=== PATIENT | female | born 1955 | race Two or more races ===

== ENCOUNTER → 2018-01-09 | Outpatient (CLI) | payer MEDICARE ==
[~2018-01-09] MED LIST: AMIT25TA PO; AMLO5TAB7 PO; ASPI-621 PO; ATOR40TA78 PO; CYMBALTA PO; DILT180C72 PO; DULO30CA2 PO; GABA300C10 PO; HYDR-3237 PO; HYDR12.58 PO; IRON PO; LEVO150T61 PO; MELO15TA24 PO; OMEP40CA6 PO; OXYC-302 PO; PRAV40TA2 PO; PREDNISONE PO; PREG300C PO; TRAM50TA2 PO
[2018-01-09 12:11] LABS: ALANINE AMINOTRANSFERASE 54 U/L (12-78); ALBUMIN 3.6 g/dL (3.4-5.0); ANION GAP 6 mmol/L (5-15); CHLORIDE 102 mmol/L (98-107); CREATININE 0.92 mg/dL (0.55-1.02)
[2018-01-09 12:14] LABS: ALKALINE PHOSPHATASE 249 U/L (45-117); BILIRUBIN,TOTAL 0.5 mg/dL (0.2-1.0); TOTAL PROTEIN 8.6 g/dL (6.4-8.2)
[2018-01-09 12:21] LABS: BASOPHILS # (AUTO) 0.02 x10^3/uL (0-0.1); BASOPHILS % (AUTO) 0 % (0-1); EOSINOPHILS # (AUTO) 0.19 x10^3/uL (0-0.4); EOSINOPHILS % (AUTO) 4 % (1-7); LYMPHOCYTES # (AUTO) 1.69 x10^3/uL (1-3.4); LYMPHOCYTES % (AUTO) 30 % (22-44); MD NO; MEAN CORPUSCULAR HEMOGLOBIN 29.8 pg (27.0-34.8); MEAN CORPUSCULAR HGB CONC 33.4 g/dL (32.4-35.8); MEAN CORPUSCULAR VOLUME 89.1 fL (80-100); MEAN PLATELET VOLUME 8.9 fL (7.4-10.4); MONOCYTES # (AUTO) 0.25 x10^3/uL (0.2-0.8); MONOCYTES % (AUTO) 5 % (2-9); NEUTROPHILS # (AUTO) 3.42 x10^3/uL (1.8-6.8); NEUTROPHILS % (AUTO) 61 % (42-75); PLATELET COUNT 240 x10^3/uL (130-400); RED BLOOD COUNT 3.71 x10^6/uL (3.82-5.3); RED CELL DISTRIBUTION WIDTH 16.6 % (9.6-15.2)
== END | disposition home or self-care (01) ==
LOC: STAR 10:52
PROVIDERS: ATTEND Thoracic Surgery (Cardiothoracic Vascular Surgery)
DX: Z01.818 Encounter for other preprocedural examination (principal); R00.1 Bradycardia, unspecified
CPT/HCPCS: 36415; 80053; 85025; 93005

== ENCOUNTER 2018-01-14 06:16 | Inpatient (IN) | payer BC, MEDICARE ==
[~2018-01-14] VITALS: Ht 162.6 cm; Wt 110.2 kg
[2018-01-14] MEDS ORDERED: FENTANYL PF 250 MCG/5ML ONE (06:24)
[2018-01-14] MEDS ORDERED: MIDAZOLAM 1 MG/ML, 2ML ONE (06:24)
[2018-01-14] MEDS ORDERED: MEPERIDINE/PF 25MG/0.5ML IVPush PRN (07:00)
[2018-01-14] MEDS ORDERED: PROMETHAZINE 12.5 MG SUPP PR PRN (07:00)
[2018-01-14] MEDS ORDERED: LABETALOL 5MG/ML, 20ML IV PRN (07:00)
[2018-01-14] MEDS ORDERED: OXYcodone 5 MG/5 ML ORAL.SOL UDC PO PRN (07:00)
[2018-01-14] MEDS ORDERED: HYDROmorphone 1 MG/ML, 1ML IV PRN (07:00)
[2018-01-14] MEDS ORDERED: EPHEDRINE 50 MG/ML, 1ML IM PRN (07:00)
[2018-01-14] MEDS ORDERED: KETOROLAC 30 MG/1 ML IV PRN (07:00)
[2018-01-14] MEDS ORDERED: PROCHLORPERAZINE 5 MG/ML, 2ML IV PRN (07:00)
[2018-01-14] MEDS ORDERED: LACTATED RINGERS 1,000 ML IV SCH ×2 (07:07→09:25)
[2018-01-14] MEDS ORDERED: BUPIVACAINE/PF-EPI 0.5% 1:200K ONE (07:07)
[2018-01-14] MEDS ORDERED: LIDOCAINE-MPF 1%, 2ML INFIL ONE (07:30)
[2018-01-14] MEDS ORDERED: ACETAMINOPHEN 500 MG TABLET PO ONE (07:30)
[2018-01-14] MEDS ORDERED: GABAPENTIN 300 MG CAPSULE PO ONE (07:30)
[2018-01-14] MEDS ORDERED: ONDANSETRON ODT 8 MG PO ONE (07:30)
[2018-01-14] MEDS ORDERED: DEXAMETHASONE 4 MG/ML, 1ML ONE ×2 (07:37)
[2018-01-14] MEDS ORDERED: PHENYLEPHRINE 10 MG/ML ONE (08:37)
[2018-01-14] MEDS ORDERED: PROPOFOL 10 MG/ML, 20ML ONE (08:37)
[2018-01-14] MEDS ORDERED: ROCURONIUM 10 MG/ML,10ML ONE (08:37)
[2018-01-14] MEDS ORDERED: CEFAZOLIN 1,000 MG ONE (08:37)
[2018-01-14] MEDS ORDERED: SUCCINYLCHOLINE 20 MG/ML, 10ML ONE (08:37)
[2018-01-14] MEDS ORDERED: SUGAMMADEX 200 MG/2 ML IVPush ONE (09:12)
[2018-01-14] MEDS ORDERED: LORazepam 2 MG/ML, 1ML IVPush PRN (09:30)
[2018-01-14] MEDS ORDERED: morphine SULFATE 10 MG/ML, 1ML IVPush PRN (09:30)
[2018-01-14] MEDS ORDERED: DIPHENHYDRAMINE 25 MG CAPSULE PO PRN (09:30)
[2018-01-14] MEDS ORDERED: DIPHENHYDRAMINE 50 MG/ML, 1ML IVPush PRN (09:30)
[2018-01-14] MEDS ORDERED: ONDANSETRON 2MG/ML, 2ML IVPush PRN (09:30)
[2018-01-14] MEDS ORDERED: ACETAMINOPHEN 650 MG SUPP PR PRN (09:30)
[2018-01-14] MEDS ORDERED: ENALAPRILAT 1.25 MG/ML, 2ML IVPush PRN (09:30)
[2018-01-14] MEDS ORDERED: ACETAMINOPHEN 325 MG TABLET PO PRN (09:30)
[2018-01-14] MEDS ORDERED: LORazepam 1MG TABLET PO PRN (09:30)
[2018-01-14] MEDS ORDERED: hydrALAzine 20 MG/ML, 1ML IVPush PRN (09:30)
[2018-01-14] MEDS: FAMOTIDINE 20 MG/2 ML IVPush SCH ×2 (09:30→20:25)
[2018-01-14] MEDS ORDERED: KETOROLAC 30 MG/1 ML ONE (09:34)
[2018-01-14] MEDS ORDERED: FENTANYL PF 100 MCG/2ML ONE ×2 (09:35→10:13)
[2018-01-14] MEDS: FENTANYL PF 100 MCG/2ML IV PRN ×4 (09:37→10:51)
[2018-01-14] MEDS ORDERED: OXYcodone 5 MG/5 ML ORAL.SOL UDC ONE (10:04)
[2018-01-14 12:53] VITALS: BP 124/78
[2018-01-14 12:54] VITALS: BP 110/72
[2018-01-14] MEDS: HYDROcodone/APAP 5/325 TABLET PO PRN (17:16)
[2018-01-14 19:00] VITALS: BP 115/79
[2018-01-14] MEDS ORDERED: ATORVASTATIN 40 MG TABLET PO SCH (21:00)
[2018-01-15 01:50] VITALS: BP 122/84
[2018-01-15] MEDS: HYDROcodone/APAP 5/325 TABLET PO PRN ×2 (02:15→08:37)
[2018-01-15 06:04] LABS: ANION GAP 6 mmol/L (5-15); CALCIUM 8.5 mg/dL (8.5-10.1); CHLORIDE 99 mmol/L (98-107)
[2018-01-15 06:06] LABS: BASOPHILS # (AUTO) 0.03 x10^3/uL (0-0.1); BASOPHILS % (AUTO) 0 % (0-1); CREATININE 0.99 mg/dL (0.55-1.02); EOSINOPHILS # (AUTO) 0.18 x10^3/uL (0-0.4); EOSINOPHILS % (AUTO) 3 % (1-7); LYMPHOCYTES # (AUTO) 1.49 x10^3/uL (1-3.4); LYMPHOCYTES % (AUTO) 20 % (22-44); MD NO; MEAN CORPUSCULAR HEMOGLOBIN 30.3 pg (27.0-34.8); MEAN CORPUSCULAR HGB CONC 33.7 g/dL (32.4-35.8); MEAN CORPUSCULAR VOLUME 89.8 fL (80-100); MEAN PLATELET VOLUME 9.1 fL (7.4-10.4); MONOCYTES # (AUTO) 0.33 x10^3/uL (0.2-0.8); MONOCYTES % (AUTO) 5 % (2-9); NEUTROPHILS % (AUTO) 72 % (42-75); PLATELET COUNT 216 x10^3/uL (130-400); RED BLOOD COUNT 3.64 x10^6/uL (3.82-5.3); RED CELL DISTRIBUTION WIDTH 17.2 % (9.6-15.2)
[2018-01-15 07:50] VITALS: BP 106/64
[2018-01-15 08:34] VITALS: BP 116/77
[2018-01-15] MEDS: FAMOTIDINE 20 MG/2 ML IVPush SCH (08:38)
[2018-01-15] MEDS ORDERED: TEMPLATE NON-FORMULARY MED. (Diltiazem Hcl** (Diltiazem Er**) 180 MG) PO SCH (09:00)
[2018-01-15] MEDS ORDERED: DILTIAZEM 60 MG TABLET PO SCH (09:00)
[2018-01-15] MEDS ORDERED: DILTIAZEM CD 180 MG CAP.ER.24H PO SCH (09:00)
[2018-01-15] MEDS ORDERED: ENOXAPARIN 40 MG/0.4 ML SQ SCH (09:00)
[2018-01-15] MEDS ORDERED: HYDR-3240 PO (10:20)
== END 2018-01-15 11:30 | disposition home or self-care (01) | DRG 315 ==
LOC: ORIP 06:16 → 5SO 11:18 → DCLOUNGE 01-15 11:06
PROVIDERS: ADMIT Thoracic Surgery (Cardiothoracic Vascular Surgery); ATTEND Thoracic Surgery (Cardiothoracic Vascular Surgery)
PROC: 0W9D4ZZ Drainage of Pericardial Cavity, Percutaneous Endoscopic Approach (ICD-10-PCS; principal; 2018-01-14 08:30)
DX: I31.3 Pericardial effusion (noninflammatory) (principal); Z68.41 Body mass index [BMI] 40.0-44.9, adult; G47.33 Obstructive sleep apnea (adult) (pediatric); K21.9 Gastro-esophageal reflux disease without esophagitis; I10 Essential (primary) hypertension; F32.9 Major depressive disorder, single episode, unspecified; M19.90 Unspecified osteoarthritis, unspecified site; E78.00 Pure hypercholesterolemia, unspecified; E66.9 Obesity, unspecified; M54.9 Dorsalgia, unspecified; Z83.3 Family history of diabetes mellitus; Z82.49 Family history of ischemic heart disease and other diseases of the circulatory system
CPT/HCPCS: 36415; 71045; 80048; 85025; 86850; 86900; 88305; G0378; J0690; J1100; J1885; J2250; J2704; J3010; Q0162; J0330; J2370; J7120; S0028